=== PATIENT | female | born 1950 | race Caucasian/White ===

== ENCOUNTER → 2017-05-01 | Outpatient (CLI) | payer OTHER | LOC: FIMAGING 09:11 | PROVIDERS: ATTEND Physician Assistant | DX: Z13.820 Encounter for screening for osteoporosis (principal) ==

== ENCOUNTER → 2017-12-01 | Outpatient (CLI) | payer OTHER | LOC: FIMAGING 19:14 | PROVIDERS: ATTEND Family Medicine | DX: M79.89 Other specified soft tissue disorders (principal) ==